=== PATIENT | female | born 1935 | race Caucasian/White ===

== ENCOUNTER → 2016-12-28 | Outpatient (CLI) | payer OTHER | END | disposition home or self-care (01) | LOC: C.PAPS 16:39 | PROVIDERS: ATTEND Obstetrics & Gynecology | DX: Z01.419 Encounter for gynecological examination (general) (routine) without abnormal findings (principal) ==

== ENCOUNTER → 2017-01-23 | Outpatient (CLI) | payer OTHER | END | disposition home or self-care (01) | LOC: C.LABBC 08:52 | PROVIDERS: ATTEND Family Medicine | DX: E83.52 Hypercalcemia (principal) ==

== ENCOUNTER → 2017-02-21 | Outpatient (CLI) | payer OTHER ==
--- NOTE | 2017-02-21 17:14 | MAMMOGRAPHY REPORT ---
UNILATERAL LEFT DIGITAL DIAGNOSTIC MAMMOGRAM TOMOSYNTHESIS WITH CAD: 02/21/2017 CLINICAL HISTORY: 6 Month Follow-up Left. TECHNIQUE: Breast tomosynthesis in addition to standard 2D mammography was performed. Current study was also evaluated with a Computer Aided Detection (CAD) system. Left CC and MLO 2-D and tomosynthes is images and spot magnification left CC and ML views were obtained. COMPARISON: Comparison is made to exams dated: 08/23/2016 mammogram, 08/15/2016 mammogram, 08/10/2015 mammogram, 06/15/2014 mammogram, 06/12/2013 mammogram, and 06/11/2012 mammogram - [facility]. BREAST COMPOSITION: There are scattered areas of fibroglandular density in the left breast. FINDINGS: Again noted is a small 3 mm cluster of predominantly punctate calcifications in the left l ower inner quadrant. The calcifications are not significantly changed compared to spot magnification views dated 08/23/2016, with possible layering noted on the August 2016 exam suggestive of milk of calcium. The calcifications are probably benign and another short interval follow-up is recommended. The remainder of the left breast is stable compared to prior exams, without suspicious masses, calcif ications, or areas of architectural distortion noted. IMPRESSION: ACR-BI-RADS CATEGORY 3: PROBABLY BENIGN Small cluster of benign-appearing calcifications in the left lower inner quadrant is stable dating ba ck to the 08/23/2016 exam, and is probably benign. Recommend short interval follow-up diagnostic mamm ograms of the left breast in 6 months to confirm 1 year of stability on spot magnification views. Ro utine mammography of the right breast will be due at that time. The patient has been verbally notified of the results. Approximately 10% of breast cancers are not detected with mammography. A negative mammographic report should not delay biopsy if a clinically suggestive mass is present. Mariana Katz M.D. ah/:02/21/2017 14:18:29 Brake Rider: Felicita GROSSMAN)(M), [facility] letter sent: Follow Up Recommended 3 BI-RADS Code: ACR-BI-RADS Category 3: Probably Benign
== END | disposition home or self-care (01) ==
LOC: C.MAMM 13:46
PROVIDERS: ATTEND Family Medicine
DX: R92.1 Mammographic calcification found on diagnostic imaging of breast (principal)

== ENCOUNTER → 2017-02-23 | Outpatient (CLI) | payer OTHER ==
[2017-02-23 11:14] LABS: CALCIUM 9.5 mg/dl (8.5-10.1)
[2017-02-23 11:15] LABS: BLOOD UREA NITROGEN 27 mg/dl (7-18); BUN/CREATININE RATIO 24.8 (10-20); CARBON DIOXIDE 27 mmol/L (21-32); CHLORIDE 108 mmol/L (98-107); GLUCOSE 93 mg/dl (70-99); POTASSIUM 4.1 mmol/L (3.5-5.1); SODIUM 142 mmol/L (136-145)
== END | disposition home or self-care (01) ==
LOC: C.LABBC 08:43
PROVIDERS: ATTEND Family Medicine
DX: E83.52 Hypercalcemia (principal)

== ENCOUNTER → 2017-08-21 | Outpatient (CLI) | payer OTHER ==
--- NOTE | 2017-08-21 14:26 | MAMMOGRAPHY REPORT ---
BILATERAL DIGITAL DIAGNOSTIC MAMMOGRAM TOMOSYNTHESIS WITH CAD: 08/21/2017 CLINICAL HISTORY: 82-year-old woman presents for follow-up in the left breast for a grouping of micro calcifications in the anterior 6:00 to 7:00 breast. Also due for annual bilateral mammography. TECHNIQUE: Bilateral CC and MLO 2-D and tomosynthesis images, spot magnification left CC and ML view s were obtained. Current study was also evaluated with a Computer Aided Detection (CAD) system. COMPARISON: Comparison is made to exams dated: 08/23/2016 mammogram, 08/15/2016 mammogram, 08/10/2015 mammogram, 06/15/2014 mammogram, 06/12/2013 mammogram, and 06/11/2012 mammogram - [facility]. BREAST COMPOSITION: There are scattered areas of fibroglandular density in both breasts. FINDINGS: The parenchymal pattern of both breasts is similar to prior mammograms. There are stable postsurgical changes in the right upper outer quadrant, with surgical clips and a linear metallic den sity remaining in place. There are scattered benign-appearing punctate microcalcifications bilateral ly. No new suspicious mass, asymmetry, unexpected architectural distortion or new calcifications are seen bilaterally. Spot magnification views of the left breast demonstrate a small 4 mm grouping of punctate and amorpho us microcalcifications in the 6:00 to 7:00 anterior left breast. These appear minimally increased co mparing back to spot magnification views performed 08/23/2016, but were not identified on the prior 2 014 mammograms and therefore remain indeterminate. Definitive characterization with a stereotactic g uided biopsy is recommended. During diagnostic evaluation the patient also reported a honey colored raised crusting lesion in the left breast. On visual inspection this 1 cm lesion has the appearance of a skin keratosis and I ramón mmended follow-up with dermatology. IMPRESSION: ACR BI-RADS CATEGORY 4: SUSPICIOUS 1. Left breast stereotactic guided biopsy is recommended for a small, 4 mm grouping of punctate and amorphous microcalcifications in the 6:00 to 7:00 anterior left breast. 2. Otherwise stable mammographic appearance of the breasts. No mammographic evidence of malignancy in the right breast. 3. Dermatologic follow-up is recommended for a honey colored crusting skin lesion in the lateral lef t breast. These results and recommendations were discussed with the patient at the time of the exam. She tenta tively scheduled the left breast stereotactic biopsy prior to leaving our department. Approximately 10% of breast cancers are not detected with mammography. A negative mammographic report should not delay biopsy if a clinically suggestive mass is present. Savannah Tam M.D. ay/:08/21/2017 10:49:52 Special Effects Makeup Artist: Mylene OLGUIN(Jose)(Alex), [facility] letter sent: Abnormal 4/5 BI-RADS Code: ACR BI-RADS Category 4: Suspicious
== END | disposition home or self-care (01) ==
LOC: C.MAMM 09:41
PROVIDERS: ATTEND Family Medicine
DX: R92.0 Mammographic microcalcification found on diagnostic imaging of breast (principal)

== ENCOUNTER → 2017-10-03 | Outpatient (CLI) | payer OTHER ==
--- NOTE | 2017-10-03 10:35 | Discharge Instructions ---
Discharge Instructions Procedure Procedure Date: Oct 03, 2017. Reason for visit: Left Calcifications. Discharge Discharge Date: Oct 03, 2017. Discharge Diagnosis: post left breast stereotactic guided biopsy Medications Restart Stopped Medication(s): May restart Aspirin tomorrow morning Instructions Activity Recommendations: Additional Limitations (see below) Return to School/Work: no limitations Recommended Home Diet: No Limitations Provider Instructions: ACTIVITY RECOMMENDATIONS: * No lifting, pushing, pulling or exercising the affected side for three days. RETURN TO SCHOOL/WORK: * You may return to work/school after the procedure, but do not perform any strenuous activities for 24 to 48 hours. MEDICATIONS: * Tylenol (two 325 mg) every four to six hours if needed for mild pain (if not allergic to Tylenol). DIET: * Resume previous diet. SPECIAL CARE INSTRUCTIONS: * Keep biopsy site dry for 24 hours. May shower after 24 hours, but do not soak (bathe) incision. * May remove Tegaderm (plastic patch) tomorrow AFTER showering. * Leave the steri-strips on for one week. Allow the steri-strips to fall off by themselves. If not off after one week, you may remove them. You may place a Bandaid crosswise over the strips, if desired. * Apply ice 10 minutes on and 10 minutes off as needed. * Wear a bra at bedtime to sleep more comfortably for 2-3 days. * Your referring physician should have the results after approximately 5 to 7 business days. * Call for unusual bleeding, fever, drainage, etc or if you have any questions call [phone] during normal business hours or after hours call Dr Tam, . FOLLOW UP VISIT: Follow-up with Referring Physician as scheduled. Allergies Coded Allergies: Penicillins (Verified Allergy, Unknown, 08/16/15) Sulfa Drugs (Verified Allergy, Unknown, 08/16/15) Uncoded Allergies: N (Allergy, Unknown, 10/30/02) PCN SULFA (Allergy, Unknown, 10/30/02) UNKNOWN (Allergy, Unknown, 10/30/02) Frankie Smyth Recommendations: Call your doctor if: * Temperature above 101 degrees * Pain not relieved by pain medicine ordered * There is increased drainage or redness from any incision * You have any unanswered questions or concerns. Your Doctors Instructions noted above were prepared by provider Savannah Tam. Patient Signature Section: Patient Instructions Signature Page Lacy Bautista Patient (or Guardian) Signature/Date: I have read and understand the instructions given to me by my caregivers. Caregiver/RN/Doctor Signature/Date: The above-named patient and/or guardian has received patient instructions on this date. + Original Patient Signature Page (only) stays with chart. Please make copy for patient.
--- NOTE | 2017-10-03 15:06 | MAMMOGRAPHY REPORT ---
STEREOTACTIC GUIDED BIOPSY LEFT BREAST: 10/03/2017 CLINICAL HISTORY: 82-year-old woman presents for biopsy of a 4 mm grouping of punctate and amorphous microcalcifications in the 6:00 anterior/subareolar left breast. COMPARISON: Comparison is made to exams dated: 08/21/2017 mammogram, 02/21/2017 mammogram, 08/23/2016 ma mmogram, 08/15/2016 mammogram, 08/10/2015 mammogram, and 06/12/2013 mammogram - . PATIENT CONSENT: After explaining the risks, benefits and alternatives of the procedure to the patien t, informed consent was obtained both verbally and in writing. Specific risks include: Bleeding, inf ection, puncture of adjacent structure, pain, nontarget biopsy, sampling error, metal allergy and med ication reaction. PROCEDURE DESCRIPTION: A time-out was performed and the left breast was confirmed as the site of biop sy. The patient was placed prone on the stereotactic biopsy table and the breast was placed in CC fro m below compression. A cloth packer image was obtained that demonstrated the clustered microcalcifications i n question. They are amenable to sterotactic biopsy. Then +15 and -15 stereo pair images were obta ined. The calcifications were targeted utilizing the coordinates obtained by the computer. The skin was prepped with Betadine. 1% Lidocaine with and without epinipherine was administered as local anest hesia. A small skin incision was made. Through the incision, the needle was inserted to the depth de termined by the computer. 10 samples were obtained using a [employer] 9-gauge vacuum-assisted biopsy device. The specimen radiograph demonstrated several commercial pest control representative microcalcifications, therefore, a metallic marker was placed at the biopsy site. There was no immediate complication. Hemostasis was achieved after several minutes of manual compression. The samples were sent to pathology in 1 approp riately labeled container. Postprocedure CC and ML views of the left breast were obtained. There is a new dumbbell-shaped biop sy marker clip and no significant hematoma in the 6:00 anterior/subareolar left breast, at the site o f the biopsied punctate calcifications seen mammographically. IMPRESSION: STEREOTACTIC GUIDED BIOPSY Status post left breast stereotactic biopsy of a small 4 mm cluster of punctate and amorphous macroca lcifications in the 6:00 anterior/subareolar left breast, with biopsy marker placed at the site. The patient will receive notification of the biopsy results from her referring physician. Savannah Tam M.D. ay/:10/03/2017 12:46:09 Assistant Director: Mylene Stubbs,
--- NOTE | 2017-10-03 15:10 | MAMMOGRAPHY REPORT ---
UNILATERAL LEFT DIGITAL DIAGNOSTIC MAMMOGRAM: 10/03/2017 CLINICAL HISTORY: Status post left breast stereotactic biopsy of a small grouping of microcavitation calcifications in the 6:00 anterior left breast. Please refer to report from left breast stereotactic biopsy performed at the same time for full detai l. IMPRESSION: POST PROCEDURE IMAGING FOR MARKER PLACEMENT Please refer to report from left breast stereotactic biopsy performed at the same time for full detai l. Approximately 10% of breast cancers are not detected with mammography. A negative mammographic report should not delay biopsy if a clinically suggestive mass is present. Savannah Tam M.D. ay/:10/03/2017 12:04:55 Rn Testing: Mylene Stubbs, [facility] BI-RADS Code: Post Procedure Imaging For Marker Placement
== END | disposition home or self-care (01) ==
LOC: C.MAMM 09:03
PROVIDERS: ATTEND Family Medicine
DX: N60.92 Unspecified benign mammary dysplasia of left breast (principal); R92.0 Mammographic microcalcification found on diagnostic imaging of breast

== ENCOUNTER → 2017-12-31 | Outpatient (CLI) | payer OTHER | END | disposition home or self-care (01) | LOC: C.PAPS 14:39 | PROVIDERS: ATTEND Obstetrics & Gynecology | DX: Z01.419 Encounter for gynecological examination (general) (routine) without abnormal findings (principal) ==

== ENCOUNTER → 2018-04-09 | Outpatient (CLI) | payer OTHER ==
[2018-04-09 17:34] LABS: BLOOD UREA NITROGEN 28 mg/dl (7-18)
== END | disposition home or self-care (01) ==
LOC: C.LABBC 13:30
PROVIDERS: ATTEND Family Medicine
DX: R05 Cough (principal); R06.02 Shortness of breath

== ENCOUNTER → 2018-04-11 | Outpatient (CLI) | payer OTHER ==
[~2018-04-11] MED LIST: OPTIRAY 320 IV PRN
--- NOTE | 2018-04-11 12:31 | DIAGNOSTIC IMAGING REPORT ---
CT (CHEST) THORAX WITH CT DOSE: 590.64 mGycm HISTORY: Cough. Dyspnea. 04/09/18 1348 EstGFR(NON Antonina 42.1 TECHNIQUE: Multiaxial CT images of the chest were performed following the intravenous administration of contrast. A dose lowering technique was utilized adhering to the principles of ALARA. COMPARISON: None. FINDINGS: The lungs are clear. The mediastinal vascular structures are within normal limits. No mediastinal or hilar lymphadenopathy. No pleural effusion or pneumothorax. Limited views of the upper abdomen demonstrate a normal liver and spleen. IMPRESSION: No significant abnormality identified within the chest. The above report was generated using voice recognition software. It may contain grammatical, syntax or spelling errors. Electronically signed by: Seth Neely M.D. 04/11/2018 12:29 PM Dictated Date/Time: 04/11/2018 12:28 PM
== END | disposition home or self-care (01) ==
LOC: C.CTS 12:05
PROVIDERS: ATTEND Family Medicine
DX: R05 Cough (principal); R06.02 Shortness of breath